=== PATIENT | female | born 1995 | race African-American/Black ===

== ENCOUNTER 2020-02-16 10:53 | Emergency (ER) | payer BC ==
[~2020-02-16] VITALS: Ht 162.6 cm; Wt 72.6 kg
[2020-02-16 11:13] VITALS: BP 115/74
--- NOTE | 2020-02-16 11:13 | NUR ---
ED Nurse Note: pt walked in to ER from home due to Rt ear pain since yesterday. no drainage noted at this time. pt aao x4 and ambulatory. skin clean and intact. calm and cooperative. no cardiac or pulmonary distress noted at this time.
[2020-02-16] MEDS ORDERED: Lidocaine 1% Plain 30 ml INJ ONE (11:15)
--- NOTE | 2020-02-16 11:20 | NUR ---
ED Nurse Note: earring stuck in Rt ear. ERMD removing it at the bedside.
[2020-02-16] MEDS ORDERED: AUGMENTIN 875-1 EAC1 ORAL (12:08)
[2020-02-16 12:10] VITALS: BP 115/74
--- NOTE | 2020-02-16 12:10 | NUR ---
ER DISCHARGE NOTE: Pt is cleared to be discharged per ERMD, pt is aox4, on room air, with stable vital signs. pt was given dc and prescription instructions, pt was able to verbalize understanding, pt id band removed. pt is able to ambulate with steady gait. pt took all belongings.
--- NOTE | 2020-02-16 12:32 | Emergency Room Report ---
History of Present Illness General Chief Complaint: Earache Source: Patient Present Illness HPI Patient reports lodged hearing in the right ear for prolonged period of time she cannot give a clear specific time however Over the past several weeks has not been able to remove the earring she noticed that there is some mild increased swelling and increased growth on the Front area of the earring and presents for further evaluation Denies any fevers or chills denies any change with hearing Patient reports that the piece in the back of the earring is a twisting and a screw type apparatus Denies any discharge Allergies: Coded Allergies: No Known Allergies (Unverified , 02/16/20) COVID-19 Screening Contact w/high risk pt: No Recent Travel to affected area: No Experienced COVID-19 symptoms?: No Patient History Past Medical History: see triage record Last Menstrual Period: 02/04/20 Reviewed Nursing Documentation: PMH: Agreed; PSxH: Agreed Nursing Documentation-[facility] Past Medical History: No Stated History Review of Systems All Other Systems: negative except mentioned in HPI Physical Exam Vital Signs Date Time Temp Pulse Resp B/P (MAP) Pulse Ox O2 Delivery O2 Flow Rate FiO2 02/16/20 10:57 99.0 83 19 115/74 (88) 97 Room Air Sp02 EP Interpretation: reviewed, normal General Appearance: well appearing, no apparent distress Head: normocephalic, atraumatic Eyes: bilateral eye PERRL, bilateral eye EOMI ENT: other - On evaluation in the right ear, on the anterior aspect there is some increased growth and early keloid process developing, posteriorly there is a small tip of the posterior aspect of the earring visible no obvious discharge however there is some mild irritation noted Neck: supple Respiratory: lungs clear, no respiratory distress, no retraction Musculoskeletal: normal inspection Neurologic: alert, oriented x3 Psychiatric: normal inspection Skin: other - As above Lymphatic: normal inspection Procedures Incision and Drainage Incision and Drainage : Consent: Verbal Site: Posterior right ear Blade Size: 11 I & D Procedure: betadine prep, sterile drapes applied, sterile dressing applied, gauze wick placed Irrigated w/ Saline (ccs): 200 Anesthesia: 1% Lidocaine Volume Anesthetic (ccs): 4 Patient Tolerated: Well Complications: None Progress The area in the posterior ear was cleansed and irrigated, a regional block was performed in the posterior auricular area with total of 4 cc of lidocaine injected There was good appropriate sedation with this With acute care nursing assistant at room 3 separate areas of incision were made with 11 blade in a pyramid/triangular type fashion The twisting apparatus in the back of the earring is a butterfly shaped apparatus And was deeply embedded into the ear It did require further manipulation to obtain access at which point I was able to twist the back part off Area cleansed and prepped with Betadine afterwards with minimal pressure bleeding does stop 3 Steri-Strips were applied for appropriate coverage I did not feel suture would be appropriate given the location and the appearance after minimal pressure Patient placed on oral antibiotics and tolerated procedure well Medical Decision Making Diagnostic Impression: Primary Impression: foreign body removed ER Course Given the area and the local reaction that appears to be occurring given the questionable infectious process and the duration I felt the patient did require to have this removed The area cleansed and prepped and procedure as noted in the procedural aspect This was somewhat of a complex procedure with the apparatus having an unusual aspect on the posterior part Patient did tolerate the procedure well she was placed on oral antibiotics Requires close outpatient follow-up With regards to the anterior keloid that had developed previously she will benefit from close plastic surgery/ENT follow-up As an outpatient process Last Vital Signs Date Time Temp Pulse Resp B/P (MAP) Pulse Ox O2 Delivery O2 Flow Rate FiO2 02/16/20 12:10 99.0 84 20 115/74 100 Room Air Status: improved Disposition: HOME, SELF-CARE Condition: Improved Scripts Amoxicillin/Potassium Clav 875-125* (AUGMENTIN 875-125 TABLET*) 1 Each Tablet 1 TAB ORAL TWICE A DAY, #10 TAB Prov: AnaalejandroLawrence DO 02/16/20 Referrals: NON PHYSICIAN (PCP) [facility] Patient Instructions: Sliver Removal, Care After, Ear Foreign Body, Easy-to- Read Additional Instructions: Patient is provided with the discharge instructions notified to follow up with primary doctor in the next 2-3 days otherwise return to the er with any worsening symptoms. As discussed the extra growth in the anterior part of your ear consistent with likely secondary keloid (as a result of the earring left in that location for prolonged time), will require further outpatient plastic surgery, ENT follow-up. Please note that this report is being documented using Teads technology. This can lead to erroneous entry secondary to incorrect interpretation by the dictating instrument. Lawrence Burrell DO Feb 16, 2020 12:32
== END 2020-02-16 12:10 | disposition home or self-care (01) ==
LOC: EMR 11:13
DX: T16.1XXA Foreign body in right ear, initial encounter (principal); L91.0 Hypertrophic scar; X58.XXXA Exposure to other specified factors, initial encounter; Y92.9 Unspecified place or not applicable
CPT/HCPCS: 10060; 99282; J2001

== ENCOUNTER 2020-02-20 11:38 | Emergency (ER) | payer BC ==
[~2020-02-20] VITALS: Ht 165.1 cm; Wt 81.6 kg
[~2020-02-20 11:38] MED LIST: AUGMENTIN 875-1 EAC1 ORAL
[2020-02-20 12:35] VITALS: BP 129/61
--- NOTE | 2020-02-20 12:35 | NUR ---
ED Nurse Note: Pt cleared by health care Provider for discharge. DC instructions/prescription was given and explained to pt and verbalized understanding of teachings. All medical devices such as ID band removed. Pt is AAO x4, ambulatory and left with all personal belongings.
--- NOTE | 2020-02-22 15:03 | Emergency Room Report ---
History of Present Illness General Chief Complaint: Earache Source: Patient Present Illness HPI 25-year-old female presents ED for wound check. Was here a few days ago with foreign body removal of earring backing in her right ear. Was removed without complication. Dressed. Placed on antibiotics. Is here for follow-up. States she feels fine. States she is taking antibiotics. Denies pain. Denies any discharge or redness. No other aggravating relieving factors. Denies any other associated symptoms Allergies: Coded Allergies: No Known Allergies (Unverified , 02/16/20) COVID-19 Screening Contact w/high risk pt: No Recent Travel to affected area: No Experienced COVID-19 symptoms?: No Patient History Past Medical History: none Past Surgical History: none Pertinent Family History: none Social History: Denies: smoking, alcohol use, drug use Last Menstrual Period: 02/08/20 Now: No Immunizations: UTD Reviewed Nursing Documentation: PMH: Agreed; PSxH: Agreed Nursing Documentation-[facility] Past Medical History: No Stated History Review of Systems All Other Systems: negative except mentioned in HPI Physical Exam Vital Signs Date Time Temp Pulse Resp B/P (MAP) Pulse Ox O2 Delivery O2 Flow Rate FiO2 02/20/20 11:44 99.3 97 18 129/61 (83) 96 Room Air Sp02 EP Interpretation: reviewed, normal General Appearance: no apparent distress, alert, GCS 15, non-toxic Head: normocephalic Eyes: bilateral eye normal inspection, bilateral eye PERRL ENT: hearing grossly normal, normal pharynx, no angioedema, normal voice, TMs + canals normal, other - no erythema/induration wound to R ear lobe. keloid noted Neck: full range of motion, supple/symm/no masses Respiratory: normal inspection Cardiovascular #1: normal inspection Gastrointestinal: normal inspection Rectal: deferred Genitourinary: no CVA tenderness Musculoskeletal: back normal Neurologic: alert, motor strength/tone normal, oriented x3, sensory intact, responsive, speech normal Psychiatric: normal inspection Skin: other - no erythema/induration R ear lobe. no discharge. keloid noted Lymphatic: normal inspection Medical Decision Making Diagnostic Impression: Primary Impression: Encounter for wound re-check ER Course Hospital Course 25-year-old F presents to ED for wound check. s/p removal of earring backing R earlobe Clinical course Patient placed on stretcher. Wound appears clean dry and intact without induration and erythema. There is a keloid on the earlobe. Patient states she does develop keloids easily I reviewed the EMR. Patient was recommended to follow-up with ENT/plastics. Patient states she misunderstood. No further intervention at this time. We will provide referrals to ENT/plastics if she develops a keloid and would like elective revision. Recommend continued wound care and to complete the antibiotics. Diagnosis - encounter for wound re-check Stable and discharged to home. continue abx as directed. Followup with PMD/ENT/ plastics. Return to ED if any signs of infection develop Last Vital Signs Date Time Temp Pulse Resp B/P (MAP) Pulse Ox O2 Delivery O2 Flow Rate FiO2 02/20/20 12:35 99.3 86 18 129/61 96 Room Air Status: improved Disposition: HOME, SELF-CARE Condition: Stable Referrals: [facility] (PCP) Jamie Hassan MD, Vivek-Sagar MD Patient Instructions: Wound Check Additional Instructions: continue your antibiotics as directed. followup with ENT or plastics for evaluation of any developing keloid Gallito Valdez MD Feb 22, 2020 15:02
== END 2020-02-20 12:35 | disposition home or self-care (01) ==
LOC: EMR 12:15
DX: T16.1XXD Foreign body in right ear, subsequent encounter (principal); X58.XXXD Exposure to other specified factors, subsequent encounter; L91.0 Hypertrophic scar
CPT/HCPCS: 99281